=== PATIENT | female | born 1995 | race Caucasian/White ===

== ENCOUNTER 2018-09-12 07:28 | Emergency (ER) | payer SELFPAY ==
--- NOTE | 2018-09-12 07:54 | ED ---
Complex/Multi-Sys Presentation - HPI Summary HPI Summary: 23 year old F presenting to [facility] accompanied by female friend with a chief complaint of feeling anxious and nervous since taking 800 mg caffeine at 06:15 this morning. The patient rates the pain 0/10 in severity. Symptoms aggravated by nothing. Symptoms alleviated by nothing. Patient denies nausea. Patient is taking antibiotics for her pilonidal cyst. Patient has treated the pain with ibuprofen. - History Of Current Complaint Chief Complaint: EDGeneral Time Seen by Provider: 09/12/18 07:41 Hx Obtained From: Patient Onset/Duration: Lasting Hours - since 06:15 this morning, Still Present Timing: Constant Severity Currently: None Aggravating Factor(s): Nothing Alleviating Factor(s): Nothing Associated Signs And Symptoms: Negative: Nausea - Allergies/Home Medications Allergies/Adverse Reactions: Allergies Allergy/AdvReac Type Severity Reaction Status Date / Time No Known Allergies Allergy Verified 09/12/18 07:34 Home Medications: Home Medications Cephalexin CAP* [Keflex CAP*] 500 mg PO TID 09/12/18 [History Confirmed 09/12/18 ] Ibuprofen TAB* [Motrin TAB* 800 MG] 800 mg PO Q8H PRN 09/12/18 [History Confirmed 09/12/18] PMH/Surg Hx/FS Hx/Imm Hx Previously Healthy: No Endocrine/Hematology History: Denies: Hx Diabetes Respiratory History: Denies: Hx Asthma - Cancer History Cancer Type, Location and Year: skin CA - Surgical History Surgery Procedure, Year, and Place: skin graft on nose Infectious Disease History: No Infectious Disease History: Denies: Traveled Outside the [place] in Last 30 Days - Family History Known Family History: Positive: Cardiac Disease, Diabetes - Social History Alcohol Use: Occasionally Hx Substance Use: No Substance Use Type: Reports: None Hx Tobacco Use: Yes Smoking Status (MU): Current Some Day Smoker Type: Cigarettes, eCigarettes Review of Systems Negative: Nausea Positive: Anxious, Other - nervous All Other Systems Reviewed And Are Negative: Yes Physical Exam - Summary Physical Exam Summary: VITAL SIGNS: Reviewed. GENERAL: Patient is a well-developed and nourished FEMALE who is lying comfortable in the stretcher. Patient is not in any acute respiratory distress. Patient is anxious. HEAD AND FACE: No signs of trauma. No ecchymosis, hematomas or skull depressions. No sinus tenderness. EYES: PERRLA, EOMI x 2, No injected conjunctiva, no nystagmus. EARS: Hearing grossly intact. Ear canals and tympanic membranes are within normal limits. MOUTH: Oropharynx within normal limits. NECK: Supple, trachea is midline, no adenopathy, no JVD, no carotid bruit, no c- spine tenderness, neck with full ROM. CHEST: Symmetric, no tenderness at palpation LUNGS: Clear to auscultation bilaterally. No wheezing or crackles. CVS: Regular rate and rhythm, S1 and S2 present, no murmurs or gallops appreciated. ABDOMEN: Soft, non-tender. No signs of distention. No rebound no guarding, and no masses palpated. Bowel sounds are normal. EXTREMITIES: FROM in all major joints, no edema, no cyanosis or clubbing. NEURO: Alert and oriented x 3. No acute neurological deficits. Speech is normal and follows commands. SKIN: Dry and warm. Triage Information Reviewed: Yes Vital Signs On Initial Exam: Initial Vitals Temp Pulse Resp BP Pulse Ox 97.5 F 84 16 140/108 99 09/12/18 07:30 09/12/18 07:30 09/12/18 07:30 09/12/18 07:30 09/12/18 07:30 Vital Signs Reviewed: Yes Diagnostics - Vital Signs Vital Signs Temp Pulse Resp BP Pulse Ox 09/12/18 07:30 97.5 F 84 16 140/108 99 - Laboratory Lab Statement: Any lab studies that have been ordered have been reviewed, and results considered in the medical decision making process. Complex Multi-Symp Course/Dx Assessment/Plan: 23 year old F presenting to [facility] accompanied by female friend with a chief complaint of feeling anxious and nervous since taking 800 mg caffeine at 06:15 this morning. The patient rates the pain 0/10 in severity. Symptoms aggravated by nothing. Symptoms alleviated by nothing. Patient denies nausea. Patient is taking antibiotics for her pilonidal cyst. Patient has treated the pain with ibuprofen. Past medical history: None. In the ED course the patient seems to be slightly anxious possibly secondary to the use of 2 tablets of 400 mg of caffeine. Patient has no other complaints. I discussed the effects of caffeine with the patient. She understands and agrees. She has no other complaints. She denies any headache, palpation, chest pain, shortness of breath, palpitations, nausea vomiting or diarrhea. Therefore, the patient was given Atarax and she will be discharged home with follow-up with PCP. Patient is hemodynamically stable alert and oriented 3. She was advised recommended not to take caffeine pills or any power drinks. The patient understands and agrees. I discussed all the findings and test results with the patient. Patient was instructed to return to the emergency room immediately if any of the symptoms return worsens. Plan of care was discussed with the patient and she understands and agrees. All questions were answered at patient satisfaction. There were no further complaints or concerns. Lung exam before discharge: CTA B/L. Good air exchange. No wheezing or crackles heard. CVS: S1 and S2 present. No murmurs appreciated. Patient is alert and oriented x 3. Patient is hemodynamically stable. Patient will be discharged home with follow up PCP in the next 2-3 days. - Diagnoses Provider Diagnoses: Anxiety Discharge - Sign-Out/Discharge Documenting (check all that apply): Patient Departure - Discharge Patient Received Moderate/Deep Sedation with Procedure: No - Discharge Plan Condition: Stable Disposition: HOME Patient Education Materials: Anxiety (ED) Forms: *Work Release Referrals: [facility] REFERRAL [Outside] - 3 Days Additional Instructions: Follow up with a primary care provider in 3 days. Return to the Emergency Department for new or worsening symptoms. - Billing Disposition and Condition Condition: STABLE Disposition: Home - Attestation Statements Document Initiated by Mila: Yes Documenting Scribe: Rafia Worthy Provider For Whom Mila is Documenting (Include Credential): John Servin MD Scribe Attestation: IRafia, scribed for John Servin MD on 09/13/18 at 2105. Scribe Documentation Reviewed: Yes Provider Attestation: The documentation as recorded by the Rafia nunez accurately reflects the service I personally performed and the decisions made by me, John Servin MD Status of Scribe Document: Viewed
[2018-09-12] MEDS ORDERED: hydrOXYzine HCL TAB* 50 MG PO ONE (08:01)
[2018-09-12 08:58] VITALS: BP 109/64
== END 2018-09-12 08:57 | disposition home or self-care (01) ==
LOC: ED 07:28
DX: F41.9 Anxiety disorder, unspecified (principal); Z72.0 Tobacco use; Z85.828 Personal history of other malignant neoplasm of skin
CPT/HCPCS: 99283; A9270-GY

== ENCOUNTER 2018-09-28 15:38 | Emergency (ER) | payer OTHER ==
[2018-09-28 16:21] LABS: ABS Eosinophils 0.1 10^3/ul (0-0.6); ABS Lymphocytes 2.8 10^3/ul (1.0-4.8); ABS Monocytes 1.1 10^3/ul (0-0.8); ABS Neutrophils 6.4 10^3/ul (1.5-7.7); Eosinophil % 1.1 %; Hematocrit 37 % (35-47); Hemoglobin 12.9 g/dL (12.0-16.0); Lymphocyte % 26.6 %; Mean Corpuscular HGB Conc 35 g/dL (31-36); Mean Corpuscular Hemoglobin 31 pg (27-31); Mean Corpuscular Volume 90 fL (80-97); Mean Platelet Volume 8.1 fL (7.4-10.4); Nucleated Red Blood Cells % 0.1; Platelet Count 355 10^3/uL (150-450); Red Blood Count 4.15 10^6 /uL (3.70-4.87); Red Cell Distribution Width 12 % (10-15); White Blood Count 10.5 10^3/uL (3.5-10.8)
[2018-09-28 16:29] LABS: INR 1.13 (0.82-1.09)
[2018-09-28 16:39] LABS: Albumin 4.4 g/dL (3.2-5.2); Albumin/Globulin Ratio 1.7 (1-3); BUN/Creatinine Ratio 18.2 (8-20); Calcium 9.5 mg/dL (8.6-10.3); EGFR African American 112.4 (>60); EGFR Non-African American 92.9 (>60); Globulin 2.6 g/dL (2-4); Potassium 3.9 mmol/L (3.5-5.0); Total Bilirubin 0.9 mg/dL (0.2-1.0)
--- NOTE | 2018-09-28 17:40 | ED ---
HPI Chest Pain - HPI Summary HPI Summary: This pt is a 23 y/o female presenting to [facility] c/o intermittent chest pain and palpitations since 09/15/18. She reports she had a panic attack on 09/15/18 and has been "stuck like this" since then. Pt describes palpitations as irregular pounding heart beats that are intermittent. Pt states her heart rate ranges from 90-112 bpm after exertion such as going up the stairs. She describes chest pain as dull and intermittent around her chest and ribs. Pt states she has been told her symptoms are from anxiety. Pt notes she has sleep disturbance and wakes up 2-3 times at night due to her symptoms. Denies abd pain, pain in legs, swelling in legs. Last time she had this episode was 1.5 weeks ago and went to the ER in [facility] where she was prescribed anti anxiety medications. Pt is from [employer] but works in [place]. - History of Current Complaint Chief Complaint: EDChestPainROMI Time Seen by Provider: 09/28/18 17:34 Hx Obtained From: Patient Onset/Duration: Started Days Ago, Still Present Timing: Intermittent, Lasting Days Pain Intensity: 3 Chest Pain Location: Mid Sternal Chest Pain Radiates: No Character: Dull/Aching - Dull Associated Signs and Symptoms: Positive: Chest Pain, Palpitations. Negative: Fever, Abdominal Pain, Calf Pain/Swelling - Allergy/Home Medications Allergies/Adverse Reactions: Allergies Allergy/AdvReac Type Severity Reaction Status Date / Time No Known Allergies Allergy Verified 09/12/18 07:34 PMH/Surg Hx/FS Hx/Imm Hx Endocrine/Hematology History: Denies: Hx Diabetes Cardiovascular History: Denies: Hx Hypertension Respiratory History: Denies: Hx Asthma - Cancer History Cancer Type, Location and Year: skin CA - Surgical History Surgery Procedure, Year, and Place: skin graft on nose Infectious Disease History: No Infectious Disease History: Denies: Traveled Outside the US in Last 30 Days - Family History Known Family History: Positive: Cardiac Disease, Diabetes - Social History Alcohol Use: Occasionally Hx Substance Use: No Substance Use Type: Reports: None Hx Tobacco Use: Yes Smoking Status (MU): Current Some Day Smoker Type: Cigarettes, eCigarettes Review of Systems Negative: Fever Positive: Palpitations, Chest Pain Negative: Abdominal Pain Negative: Edema, Other - NEGATIVE: All Other Systems Reviewed And Are Negative: Yes Physical Exam - Summary Physical Exam Summary: Appearance: Well-appearing, Well-nourished, lying in bed comfortably Skin: Warm, dry, no obvious rash Eyes: sclera anicteric, no conjunctival pallor ENT: mucous membranes moist, pharynx appears normal Neck: Supple, nontender Respiratory: Clear to auscultation, no signs of respiratory distress Cardiovascular: Normal S1, S2. No murmurs. Normal distal pulses in tibial and radial bilaterally. Abdomen: Soft, nontender, normal active bowel sounds present Musculoskeletal: Normal, Strength/ROM Intact Neurological: A&Ox3, awake and alert, mentation is normal, speech is fluent and appropriate Psychiatric: affect is normal, does not appear anxious or depressed Triage Information Reviewed: Yes Vital Signs On Initial Exam: Initial Vitals Temp Pulse Resp BP Pulse Ox 97.3 F 92 18 132/78 99 09/28/18 15:43 09/28/18 15:43 09/28/18 15:43 09/28/18 15:43 09/28/18 15:43 Vital Signs Reviewed: Yes Diagnostics - Vital Signs Vital Signs Temp Pulse Resp BP Pulse Ox 09/28/18 15:43 97.3 F 92 18 132/78 99 - Laboratory Lab Results: Lab Results 09/28/18 09/28/18 09/28/18 Range/Units 16:13 16:13 16:13 WBC 10.5 (3.5-10.8) 10^3/uL RBC 4.15 (3.70-4.87) 10^6 /uL Hgb 12.9 (12.0-16.0) g/dL Hct 37 (35-47) % MCV 90 (80-97) fL MCH 31 (27-31) pg MCHC 35 (31-36) g/dL RDW 12 (10-15) % Plt Count 355 (150-450) 10^3/uL MPV 8.1 (7.4-10.4) fL Neut % (Auto) 61.2 % Lymph % (Auto) 26.6 % [place] % (Auto) 10.8 % Eos % (Auto) 1.1 % Baso % (Auto) 0.3 % Absolute Neuts (auto) 6.4 (1.5-7.7) 10^3/ul Absolute Lymphs (auto) 2.8 (1.0-4.8) 10^3/ul Absolute Monos (auto) 1.1 H (0-0.8) 10^3/ul Absolute Eos (auto) 0.1 (0-0.6) 10^3/ul Absolute Basos (auto) 0.0 (0-0.2) 10^3/ul Absolute Nucleated RBC 0.0 10^3/ul Nucleated RBC % 0.1 INR (Anticoag Therapy) 1.13 H (0.82-1.09) Sodium 139 (135-145) mmol/L Potassium 3.9 (3.5-5.0) mmol/L Chloride 107 (101-111) mmol/L Carbon Dioxide 25 (22-32) mmol/L Anion Gap 7 (2-11) mmol/L BUN 14 (6-24) mg/dL Creatinine 0.77 (0.51-0.95) mg/dL Est GFR ( Amer) 112.4 (>60) Est GFR (Non-Af Amer) 92.9 (>60) BUN/Creatinine Ratio 18.2 (8-20) Glucose 89 (70-100) mg/dL Calcium 9.5 (8.6-10.3) mg/dL Total Bilirubin 0.90 (0.2-1.0) mg/dL AST 18 (13-39) U/L ALT 15 (7-52) U/L Alkaline Phosphatase 53 (34-104) U/L Troponin I 0.00 (<0.04) ng/mL Total Protein 7.0 (6.4-8.9) g/dL Albumin 4.4 (3.2-5.2) g/dL Globulin 2.6 (2-4) g/dL Albumin/Globulin Ratio 1.7 (1-3) Result Diagrams: 09/28/18 16:13 09/28/18 16:13 Lab Statement: Any lab studies that have been ordered have been reviewed, and results considered in the medical decision making process. - EKG 15:43 Cardiac Rate: NL - at 73 bpm EKG Rhythm: Sinus Rhythm Summary of EKG Findings: NSR at 73 bpm, P waves, QRS complex, and T waves are within normal limits, T waves and intervals are normal, no ischemic changes. This is a normal EKG. Chest Pain Course/Dx - Course Assessment/Plan: Pt is a 23 y/o female presenting to [facility] c/o intermittent chest pain and palpitations since 09/15/18 after she had a panic attack. Pt describes palpitations as irregular pounding heart beats that are intermittent. Pt states her heart rate ranges from 90-112 bpm after exertion such as going up the stairs. She describes chest pain as dull and intermittent around her chest and ribs. EKG shows NSR at 73 bpm. Pt has a normal physical exam. She will be discharged home with follow up from a rack washer for further work up. Pt understands and agrees. - Diagnoses Provider Diagnoses: Palpitations, Chest pain Discharge - Sign-Out/Discharge Documenting (check all that apply): Patient Departure - Discharge home Patient Received Moderate/Deep Sedation with Procedure: No - Discharge Plan Condition: Good Disposition: HOME Patient Education Materials: Heart Palpitations (ED) Referrals: Esteban Laughlin MD [Medical Doctor] - Additional Instructions: The rack washer can evaluate you and if he/she feels appropriate order some type of ambulatory heart rhythm monitoring test. That would be the best way to make a diagnosis of your problem. - Attestation Statements Document Initiated by Scribe: Yes Documenting Scribe: Milly Cody Provider For Whom Mila is Documenting (Include Credential): Jose Wlash MD Scribe Attestation: Milly Bernal, scribed for Jose Walsh MD on 09/28/18 at 4056. Status of Scribe Document: Ready
[2018-09-28 18:06] VITALS: BP 104/72
[2018-09-28 18:31] LABS: TSH (Thyroid Stimulating Horm) 0.76 mcIU/mL (0.34-5.60)
== END 2018-09-28 18:05 | disposition home or self-care (01) ==
LOC: ED 15:38
DX: R07.9 Chest pain, unspecified (principal); R00.2 Palpitations; F17.210 Nicotine dependence, cigarettes, uncomplicated
CPT/HCPCS: 36415; 80053; 84443; 84484; 85025; 85610; 93005; 99282

== ENCOUNTER 2018-10-17 15:37 | Emergency (ER) | payer OTHER ==
[2018-10-17 16:18] LABS: ABS Eosinophils 0.2 10^3/ul (0-0.6); ABS Lymphocytes 2.7 10^3/ul (1.0-4.8); ABS Monocytes 1.3 10^3/ul (0-0.8); ABS Neutrophils 6.8 10^3/ul (1.5-7.7); Eosinophil % 1.6 %; Hematocrit 38 % (35-47); Hemoglobin 13.3 g/dL (12.0-16.0); Lymphocyte % 24.4 %; Mean Corpuscular HGB Conc 35 g/dL (31-36); Mean Corpuscular Hemoglobin 32 pg (27-31); Mean Corpuscular Volume 91 fL (80-97); Mean Platelet Volume 7.5 fL (7.4-10.4); Platelet Count 340 10^3/uL (150-450); Red Blood Count 4.21 10^6 /uL (3.70-4.87); Red Cell Distribution Width 13 % (10-15)
[2018-10-17 16:38] LABS: Albumin 4.3 g/dL (3.2-5.2); Albumin/Globulin Ratio 1.6 (1-3); BUN/Creatinine Ratio 19.4 (8-20); Calcium 9.1 mg/dL (8.6-10.3); EGFR African American 121.5 (>60); EGFR Non-African American 100.4 (>60); Globulin 2.7 g/dL (2-4); Potassium 4.1 mmol/L (3.5-5.0); Total Bilirubin 0.7 mg/dL (0.2-1.0)
[2018-10-17 16:58] LABS: TSH (Thyroid Stimulating Horm) 1.29 mcIU/mL (0.34-5.60)
[2018-10-17 17:28] LABS: Urine Appearance Clear; Urine Bacteria Absent (Absent); Urine Bilirubin Negative (Negative); Urine Blood Negative (Negative); Urine Color Straw; Urine Glucose Negative (Negative); Urine Ketones Negative (Negative); Urine Nitrite Negative (Negative); Urine Protein Negative (Negative); Urine Red Blood Cell Trace(0-2/hpf) (Absent); Urine Specific Gravity 1.008 (1.010-1.030); Urine Squamous Epithelial Cell Present (Absent); Urine Urobilinogen Negative (Negative); Urine White Blood Cell Trace(0-5/hpf) (Absent)
--- NOTE | 2018-10-17 17:30 | ED ---
Syncope/Near Syncope - HPI Summary HPI Summary: Patient is a 23-year-old female presenting to the ED after syncopal event and working outside today. She denies any cardiac symptoms. She denies any CP or SOB. She states she was out for approximately 30 seconds to her knowledge, this was unwitnessed. Denies seizure history. Denies any headache, visual changes, nausea, vomiting or other symptoms at this time. She states she feels otherwise well and at her baseline. She was diagnosed with anxiety, but states she feels is more cardiac related and does not feel she has anxiety. She has a follow-up with a acid adjuster tomorrow [facility] [place]. She denies any weakness or fatigue at this time. Patient does state she has mild diffuse abdominal pain and feels she may be constipated. - History Of Current Complaint Chief Complaint: EDSyncope Time Seen by Provider: 10/17/18 16:32 Hx Obtained From: Patient Onset/Duration: Sudden Onset Timing: Constant Context: Unwitnessed Associated Head Trauma: No Aggravating Factor(s): Nothing Alleviating Factor(s): Nothing Associated Signs And Symptoms: Negative - Risk Factors Cardiac Risk Factors: Negative Dysrhythmia Risk Factors: Negative Risk Factor(s): Negative - Allergies/Home Medications Allergies/Adverse Reactions: Allergies Allergy/AdvReac Type Severity Reaction Status Date / Time No Known Allergies Allergy Verified 09/12/18 07:34 PMH/Surg Hx/FS Hx/Imm Hx Previously Healthy: Yes Endocrine/Hematology History: Denies: Hx Diabetes Cardiovascular History: Denies: Hx Hypertension Respiratory History: Denies: Hx Asthma - Cancer History Cancer Type, Location and Year: skin CA - Surgical History Surgery Procedure, Year, and Place: skin graft on nose - Immunization History Hx Pertussis Vaccination: No Immunizations Up to Date: Yes Infectious Disease History: No Infectious Disease History: Denies: Traveled Outside the [place] in Last 30 Days - Family History Known Family History: Positive: Cardiac Disease, Diabetes - Social History Occupation: Employed Full-time Lives: With Family Alcohol Use: Rare Hx Substance Use: No Substance Use Type: Reports: Marijuana Hx Tobacco Use: Yes Smoking Status (MU): Current Every Day Smoker Type: Cigarettes, eCigarettes Review of Systems Constitutional: Negative Negative: Fever, Chills, Fatigue, Skin Diaphoresis Negative: Palpitations, Chest Pain Negative: Shortness Of Breath, Cough Genitourinary: Negative Positive: no symptoms reported, see HPI Negative: Arthralgia, Myalgia Skin: Negative Positive: Syncope All Other Systems Reviewed And Are Negative: Yes Physical Exam Triage Information Reviewed: Yes Vital Signs On Initial Exam: Initial Vitals Temp Pulse Resp BP Pulse Ox 98.5 F 79 18 145/79 97 10/17/18 15:44 10/17/18 15:44 10/17/18 15:44 10/17/18 15:44 10/17/18 15:44 Vital Signs Reviewed: Yes Appearance: Positive: Well-Appearing, Well-Nourished Skin: Positive: Warm, Skin Color Reflects Adequate Perfusion Head/Face: Positive: Normal Head/Face Inspection Eyes: Positive: EOMI, Conjunctiva Clear Neck: Positive: Supple, No Lymphadenopathy Respiratory/Lung Sounds: Positive: Clear to Auscultation, Breath Sounds Present Cardiovascular: Positive: RRR, Pulses are Symmetrical in both Upper and Lower Extremities Abdomen Description: Positive: Other: - Mild tenderness throughout the lower abdomen Musculoskeletal: Positive: Normal, Strength/ROM Intact Neurological: Positive: Alert, Oriented to Person Place, Time, Speech Normal Psychiatric: Positive: Affect/Mood Appropriate Diagnostics - Vital Signs Vital Signs Temp Pulse Resp BP Pulse Ox 10/17/18 15:44 98.5 F 79 18 145/79 97 - Laboratory Lab Results: Lab Results 10/17/18 10/17/18 10/17/18 Range/Units 16:11 16:11 16:11 WBC 11.0 H (3.5-10.8) 10^3/uL RBC 4.21 (3.70-4.87) 10^6 /uL Hgb 13.3 (12.0-16.0) g/dL Hct 38 (35-47) % MCV 91 (80-97) fL MCH 32 H (27-31) pg MCHC 35 (31-36) g/dL RDW 13 (10-15) % Plt Count 340 (150-450) 10^3/uL MPV 7.5 (7.4-10.4) fL Neut % (Auto) 62.0 % Lymph % (Auto) 24.4 % [place] % (Auto) 11.6 % Eos % (Auto) 1.6 % Baso % (Auto) 0.4 % Absolute Neuts (auto) 6.8 (1.5-7.7) 10^3/ul Absolute Lymphs (auto) 2.7 (1.0-4.8) 10^3/ul Absolute Monos (auto) 1.3 H (0-0.8) 10^3/ul Absolute Eos (auto) 0.2 (0-0.6) 10^3/ul Absolute Basos (auto) 0.0 (0-0.2) 10^3/ul Absolute Nucleated RBC 0.0 10^3/ul Nucleated RBC % 0.0 Sodium 138 (135-145) mmol/L Potassium 4.1 (3.5-5.0) mmol/L Chloride 106 (101-111) mmol/L Carbon Dioxide 27 (22-32) mmol/L Anion Gap 5 (2-11) mmol/L BUN 14 (6-24) mg/dL Creatinine 0.72 (0.51-0.95) mg/dL Est GFR ( Amer) 121.5 (>60) Est GFR (Non-Af Amer) 100.4 (>60) BUN/Creatinine Ratio 19.4 (8-20) Glucose 90 (70-100) mg/dL Lactic Acid 0.4 L (0.5-2.0) mmol/L Calcium 9.1 (8.6-10.3) mg/dL Magnesium 2.0 (1.9-2.7) mg/dL Total Bilirubin 0.70 (0.2-1.0) mg/dL AST 16 (13-39) U/L ALT 11 (7-52) U/L Alkaline Phosphatase 48 (34-104) U/L Troponin I 0.00 (<0.04) ng/mL Total Protein 7.0 (6.4-8.9) g/dL Albumin 4.3 (3.2-5.2) g/dL Globulin 2.7 (2-4) g/dL Albumin/Globulin Ratio 1.6 (1-3) TSH 1.29 (0.34-5.60) mcIU/mL Urine Color Urine Appearance Urine pH (5-9) Ur Specific Gage (1.010-1.030) Urine Protein (Negative) Urine Ketones (Negative) Urine Blood (Negative) Urine Nitrate (Negative) Urine Bilirubin (Negative) Urine Urobilinogen (Negative) Ur Leukocyte Esterase (Negative) Urine WBC (Auto) (Absent) Urine RBC (Auto) (Absent) Ur Squamous Epith Cells (Absent) Urine Bacteria (Absent) Urine Glucose (Negative) 10/17/18 Range/Units 17:02 WBC (3.5-10.8) 10^3/uL RBC (3.70-4.87) 10^6 /uL Hgb (12.0-16.0) g/dL Hct (35-47) % MCV (80-97) fL MCH (27-31) pg MCHC (31-36) g/dL RDW (10-15) % Plt Count (150-450) 10^3/uL MPV (7.4-10.4) fL Neut % (Auto) % Lymph % (Auto) % [place] % (Auto) % Eos % (Auto) % Baso % (Auto) % Absolute Neuts (auto) (1.5-7.7) 10^3/ul Absolute Lymphs (auto) (1.0-4.8) 10^3/ul Absolute Monos (auto) (0-0.8) 10^3/ul Absolute Eos (auto) (0-0.6) 10^3/ul Absolute Basos (auto) (0-0.2) 10^3/ul Absolute Nucleated RBC 10^3/ul Nucleated RBC % Sodium (135-145) mmol/L Potassium (3.5-5.0) mmol/L Chloride (101-111) mmol/L Carbon Dioxide (22-32) mmol/L Anion Gap (2-11) mmol/L BUN (6-24) mg/dL Creatinine (0.51-0.95) mg/dL Est GFR ( Amer) (>60) Est GFR (Non-Af Amer) (>60) BUN/Creatinine Ratio (8-20) Glucose (70-100) mg/dL Lactic Acid (0.5-2.0) mmol/L Calcium (8.6-10.3) mg/dL Magnesium (1.9-2.7) mg/dL Total Bilirubin (0.2-1.0) mg/dL AST (13-39) U/L ALT (7-52) U/L Alkaline Phosphatase (34-104) U/L Troponin I (<0.04) ng/mL Total Protein (6.4-8.9) g/dL Albumin (3.2-5.2) g/dL Globulin (2-4) g/dL Albumin/Globulin Ratio (1-3) TSH (0.34-5.60) mcIU/mL Urine Color Straw Urine Appearance Clear Urine pH 6.0 (5-9) Ur Specific Gage 1.008 L (1.010-1.030) Urine Protein Negative (Negative) Urine Ketones Negative (Negative) Urine Blood Negative (Negative) Urine Nitrate Negative (Negative) Urine Bilirubin Negative (Negative) Urine Urobilinogen Negative (Negative) Ur Leukocyte Esterase Trace A (Negative) Urine WBC (Auto) Trace(0-5/hpf) (Absent) Urine RBC (Auto) Trace(0-2/hpf) (Absent) Ur Squamous Epith Cells Present A (Absent) Urine Bacteria Absent (Absent) Urine Glucose Negative (Negative) Result Diagrams: 10/17/18 16:11 10/17/18 16:11 Lab Statement: Any lab studies that have been ordered have been reviewed, and results considered in the medical decision making process. Course/Dx Course Of Treatment: During this was treatment, the patient is evaluated for syncopal episode while working outside this afternoon. Labs obtained which are unremarkable including his troponin 0.00. EKG obtained which shows normal sinus rhythm. UA obtained which is also negative. Patient does endorse some mild diffuse abdominal pain worse and present times several days to the abdomen. On physical examination, she is having pain to deep palpation. Abdominal x-ray and chest x-ray obtained both of which were negative. Discussed findings with the patient and she states she is okay for discharge at this time as she has a close follow-up with her acid adjuster tomorrow morning. She denies any other symptoms. - Diagnoses Differential Diagnosis/HQI/PQRI: Positive: Other - anxiety, abd pain Provider Diagnoses: Syncope Discharge - Sign-Out/Discharge Documenting (check all that apply): Patient Departure Patient Received Moderate/Deep Sedation with Procedure: No - Discharge Plan Condition: Stable Disposition: HOME Patient Education Materials: Syncope (ED) Referrals: No Primary Care Phys,NOPCP [Primary Care Provider] - Additional Instructions: All your labs came back as normal and unremarkable Nothing found on todays exam as to why you had a syncopal episode Please drink plenty of fluids Please follow up with your acid adjuster tomorrow as scheduled For any worsening symptoms, please return to the ED immediately - Billing Disposition and Condition Condition: STABLE Disposition: Home - Attestation Statements Provider Attestation: I was available for consultation for this patient. I did not evaluate the patient or participate in any medical decision making or disposition decisions unless I am specifically named in the chart as having consulted on the patient. If I have consulted on the patient, please see my own ED note on the patient encounter. Mirna Mcbride MD
[2018-10-17 18:16] VITALS: BP 132/72
== END 2018-10-17 18:10 | disposition home or self-care (01) ==
LOC: ED 15:37
DX: R55 Syncope and collapse (principal); F41.9 Anxiety disorder, unspecified; R10.9 Unspecified abdominal pain; F17.210 Nicotine dependence, cigarettes, uncomplicated
CPT/HCPCS: 36415; 71046; 74018; 80053; 81003; 81015; 83605; 83735; 84443; 84484; 85025; 87086; 93005; 99282

== ENCOUNTER 2018-11-27 09:51 | Emergency (ER) | payer OTHER ==
[2018-11-27 11:55] LABS: ABS Eosinophils 0.2 10^3/ul (0-0.6); ABS Lymphocytes 1.9 10^3/ul (1.0-4.8); ABS Monocytes 0.9 10^3/ul (0-0.8); ABS Neutrophils 4.5 10^3/ul (1.5-7.7); Eosinophil % 2.8 %; Hematocrit 42 % (35-47); Hemoglobin 14.3 g/dL (12.0-16.0); Lymphocyte % 24.8 %; Mean Corpuscular HGB Conc 34 g/dL (31-36); Mean Corpuscular Hemoglobin 31 pg (27-31); Mean Corpuscular Volume 92 fL (80-97); Mean Platelet Volume 7.6 fL (7.4-10.4); Nucleated Red Blood Cells % 0.1; Platelet Count 362 10^3/uL (150-450); Red Blood Count 4.57 10^6 /uL (3.70-4.87); Red Cell Distribution Width 14 % (10-15); White Blood Count 7.5 10^3/uL (3.5-10.8)
[2018-11-27 12:01] LABS: Albumin 4.5 g/dL (3.2-5.2); Total Bilirubin 0.6 mg/dL (0.2-1.0)
[2018-11-27 12:06] LABS: Activated Partial Thrombo Time 34.5 seconds (26.0-38.0); INR 0.97 (0.82-1.09)
[2018-11-27 12:07] LABS: Albumin/Globulin Ratio 1.9 (1-3); BUN/Creatinine Ratio 17.8 (8-20); EGFR African American 119.5 (>60); EGFR Non-African American 98.8 (>60); Globulin 2.4 g/dL (2-4); Total Protein 6.9 g/dL (6.4-8.9)
--- NOTE | 2018-11-27 12:16 | ED ---
GI/ HPI - HPI Summary HPI Summary: Pt is a 23 y/o F presenting to the ED with a chief complaint of rectal bleeding. She states she has had rectal bleeding in the past, and today she went to the bathroom when she was at work and saw blood in her stool. She did not strain more than usual, but she reports rectal pain, dizziness, and lightheadedness. Pt denies any fever, chills, erythema of eyes, sore throat, CP , SOB, cough, abdominal pain, N/V, black bowel movements, dysuria, hematuria, myalgia, edema, rash, or weakness. - History of Current Complaint Chief Complaint: EDGIBleed Time Seen by Provider: 11/27/18 11:16 Stated Complaint: BLOOD IN STOOL Hx Obtained From: Patient Onset/Duration: Started Hours Ago, Still Present Timing: Constant, Lasting Hours Severity: Mild Current Severity: None Pain Intensity: 0 Location of Pain: None Associated Signs and Symptoms: Positive: Dizziness, Rectal Pain, Blood w/Stool, Lightheadedness. Negative: Weakness, Nausea, Vomiting, Fever, Hematuria, Dysuria, Chills, Abdominal Pain, Cough, Chest Pain Aggravating Factor(s): Voiding Alleviating Factor(s): Nothing - Allergy/Home Medications Allergies/Adverse Reactions: Allergies Allergy/AdvReac Type Severity Reaction Status Date / Time No Known Allergies Allergy Verified 11/27/18 09:56 PMH/Surg Hx/FS Hx/Imm Hx Previously Healthy: Yes Endocrine/Hematology History: Denies: Hx Diabetes Cardiovascular History: Denies: Hx Hypertension Respiratory History: Denies: Hx Asthma - Cancer History Cancer Type, Location and Year: skin CA - Surgical History Surgery Procedure, Year, and Place: skin graft on nose - Immunization History Immunizations Up to Date: Yes Infectious Disease History: No Infectious Disease History: Denies: Traveled Outside the [place] in Last 30 Days - Family History Known Family History: Positive: Cardiac Disease, Diabetes - Social History Alcohol Use: Occasionally Hx Substance Use: No Substance Use Type: Reports: Marijuana Substance Use Comment - Amount & Last Used: occasional Hx Tobacco Use: Yes Smoking Status (MU): Current Every Day Smoker Type: Cigarettes, eCigarettes Review of Systems Negative: Fever, Chills Negative: Erythema Negative: Sore Throat Negative: Chest Pain Negative: Shortness Of Breath, Cough Positive: Other - blood in stool. Negative: Abdominal Pain, Vomiting, Nausea Negative: dysuria, hematuria Negative: Myalgia Negative: Rash Neurological: Negative - weakness, Other - dizziness, lightheadedness All Other Systems Reviewed And Are Negative: Yes Physical Exam - Summary Physical Exam Summary: Constitutional: Well-developed, Well-nourished, Alert. (-) Distressed Skin: Warm, Dry HENT: Normocephalic; Atraumatic Eyes: Conjunctiva normal Neck: Musculoskeletal ROM normal neck. (-) JVD, (-) Stridor, (-) Tracheal deviation Cardio: Rhythm regular, rate normal, Heart sounds normal; Intact distal pulses; The pedal pulses are 2+ and symmetric. Radial pulses are 2+ and symmetric. (-) Murmur Pulmonary/Chest wall: Effort normal. (-) Respiratory distress, (-) Wheezes, (-) Rales Abd: Soft, (-) tenderness, (-) Distension, (-) Guarding, (-) Rebound Musculoskeletal: (-) Edema Lymph: (-) Cervical adenopathy Neuro: Alert, Oriented x3 Psych: Mood and affect Normal Rectal: No external/internal hemorrhoids, no shandra blood, empty vault. Triage Information Reviewed: Yes Vital Signs On Initial Exam: Initial Vitals Temp Pulse Resp BP Pulse Ox 98.2 F 84 14 136/83 98 11/27/18 09:52 11/27/18 09:52 11/27/18 09:52 11/27/18 09:52 11/27/18 09:52 Vital Signs Reviewed: Yes Diagnostics - Vital Signs Vital Signs Temp Pulse Resp BP Pulse Ox 11/27/18 09:52 98.2 F 84 14 136/83 98 - Laboratory Lab Results: Lab Results 11/27/18 11/27/18 11/27/18 Range/Units 11:44 11:44 11:44 WBC 7.5 (3.5-10.8) 10^3/uL RBC 4.57 (3.70-4.87) 10^6 /uL Hgb 14.3 (12.0-16.0) g/dL Hct 42 (35-47) % MCV 92 (80-97) fL MCH 31 (27-31) pg MCHC 34 (31-36) g/dL RDW 14 (10-15) % Plt Count 362 (150-450) 10^3/uL MPV 7.6 (7.4-10.4) fL Neut % (Auto) 60.1 % Lymph % (Auto) 24.8 % Vermilion % (Auto) 11.7 % Eos % (Auto) 2.8 % Baso % (Auto) 0.6 % Absolute Neuts (auto) 4.5 (1.5-7.7) 10^3/ul Absolute Lymphs (auto) 1.9 (1.0-4.8) 10^3/ul Absolute Monos (auto) 0.9 H (0-0.8) 10^3/ul Absolute Eos (auto) 0.2 (0-0.6) 10^3/ul Absolute Basos (auto) 0.0 (0-0.2) 10^3/ul Absolute Nucleated RBC 0.0 10^3/ul Nucleated RBC % 0.1 INR (Anticoag Therapy) 0.97 (0.82-1.09) APTT 34.5 (26.0-38.0) seconds Sodium 138 (135-145) mmol/L Potassium 4.0 (3.5-5.0) mmol/L Chloride 104 (101-111) mmol/L Carbon Dioxide 30 (22-32) mmol/L Anion Gap 4 (2-11) mmol/L BUN 13 (6-24) mg/dL Creatinine 0.73 (0.51-0.95) mg/dL Est GFR ( Amer) 119.5 (>60) Est GFR (Non-Af Amer) 98.8 (>60) BUN/Creatinine Ratio 17.8 (8-20) Glucose 93 (70-100) mg/dL Calcium 9.0 (8.6-10.3) mg/dL Total Bilirubin 0.60 (0.2-1.0) mg/dL AST 20 (13-39) U/L ALT 19 (7-52) U/L Alkaline Phosphatase 57 (34-104) U/L Total Protein 6.9 (6.4-8.9) g/dL Albumin 4.5 (3.2-5.2) g/dL Globulin 2.4 (2-4) g/dL Albumin/Globulin Ratio 1.9 (1-3) Vitamin B12 Pending TSH Pending Free T4 Pending Result Diagrams: 11/27/18 11:44 11/27/18 11:44 Lab Statement: Any lab studies that have been ordered have been reviewed, and results considered in the medical decision making process. GIGU Course/Dx - Course Course Of Treatment: Pt is a 23 y/o F presenting to the ED with a chief complaint of rectal bleeding. She states she has had rectal bleeding in the past , and today she went to the bathroom when she was at work and saw blood in her stool. She did not strain more than usual, but she reports rectal pain, dizziness, and lightheadedness. Pt denies any fever, chills, erythema of eyes, sore throat, CP, SOB, cough, abdominal pain, N/V, black bowel movements, dysuria , hematuria, myalgia, edema, rash, or weakness. She also notes frequent recent muscle spasms and sharp shooting pains. 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 She notes she started having panic attacks after this happened. On exam, the pt has no internal or external hemorrhoids, no shandra blood, and an empty vault. I did a medical record review of her most recent visits to the ED , and her pain is very seemingly related to a kind of anxiety. The pts brother does have Crohns, but she herself has not seen a GI physician. Her lab results showed normal Hgb, Hct, and stable vitals, and I am comfortable with her discharge. She noted while in the ED that she did not like her PCP, so I will be giving her referrals to [facility] as well as Dr. Jackson of . Differential includes internal hemorrhoids, external hemorrhoids, fissure, Crohn s, and colitis. Her dx will be rectal bleeding. She is stable and agreeable with this plan. - Diagnoses Differential Diagnoses - Female: Colitis, Hemorrhoids - internal and external, Rectal Fissure, Other - crohn's Provider Diagnoses: Rectal bleeding Discharge ED - Sign-Out/Discharge Documenting (check all that apply): Patient Departure Patient Received Moderate/Deep Sedation with Procedure: No - Discharge Plan Condition: Stable Disposition: HOME Patient Education Materials: Rectal Bleeding (ED) Referrals: [facility] [Outside] Pablo Jackson MD [Medical Doctor] - Additional Instructions: Please follow up with Dr. Manuel of GI and your primary care provider within the next 2-3 days. Return to the emergency department with any new or worsening symptoms. - Attestation Statements Document Initiated by Scribe: Yes Documenting Scribe: Kirstie Rose Provider For Whom Mila is Documenting (Include Credential): Fer Guan MD. Scribe Attestation: Kirstie Bernal, scribed for Fer Guan MD. on 11/27/18 at 1216. Status of Scribe Document: Ready
[2018-11-27 12:42] LABS: TSH (Thyroid Stimulating Horm) 1.51 mcIU/mL (0.34-5.60)
[2018-11-27 12:44] LABS: Free T4 0.81 ng/dL (0.61-1.12)
[2018-11-27 12:59] VITALS: BP 137/79
[2018-11-28 13:19] LABS: Submitting Laboratory Phone 6072744474; Venous/Capillary Venous
== END 2018-11-27 12:50 | disposition home or self-care (01) ==
LOC: ED 09:51
DX: K62.5 Hemorrhage of anus and rectum (principal); R42 Dizziness and giddiness; F17.210 Nicotine dependence, cigarettes, uncomplicated
CPT/HCPCS: 36415; 80053; 82607; 83655; 84425; 84439; 84443; 85025; 85610; 85730; 99282